=== PATIENT | male | born 1965 | race Two or more races ===

== ENCOUNTER 2024-10-12 14:08 | Emergency (ER) | payer OTHER ==
[~2024-10-12] VITALS: Ht 177.8 cm; Wt 74.9 kg
--- NOTE | 2024-10-12 15:32 | ED.PDOC ---
History of Present Illness HPI Comments 59-year-old male presents with a chief complaint of left sided pelvic pain that radiates into his testes x 1 day. Patient states that his pain is localized to his left inguinal region, radiates into his left testicle, describes as sharp, and is exertional. Patient mentions that the pain is made worse with attempting to sit down and standing up. Patient denies any penile discharge or urinary symptoms. Patient also denies any trauma. Chief Complaint: Pelvic Pain Time Seen by MD: 15:18 Reviewed Notes: Nurses Notes, Medications, Allergies Allergies: Coded Allergies: NO KNOWN ALLERGIES (Unverified , 10/12/24) Information Source: Patient Mode of Arrival: Ambulatory Severity: Moderate Timing: Days Duration: Since onset Prehospital treatment: None Past Medical History PAST MEDICAL HISTORY: Denies Surgical History: Denies all surgeries Family History Family History: Reviewed,noncontributory to illness Social History Smoker: Non-Smoker Alcohol: Denies ETOH Use Drugs: Denies Drug Use Lives In: Home Constitutional: denies: chills, diaphoresis, fatigue, fever, malaise, sweats, weakness, others EENTM: denies: blurred vision, double vision, ear bleeding, ear discharge, ear drainage, ear pain, ear ringing, eye pain, eye redness, hearing loss, mouth pa in, mouth swelling, nasal discharge, nose bleeding, nose congestion, nose pain, photophobia, tearing, throat pain, throat swelling, voice changes, others Respiratory: denies: cough, hemoptysis, orthopnea, SOB at rest, shortness of breath, SOB with excertion, stridor, wheezing, others Cardiovascular: denies: chest pain, dizzy spells, diaphoresis, Dyspnea on exertion, edema, irregular heart beat, left arm pain, lightheadedness, palpitations, PND, syncope, others Gastrointestinal: denies: abdomen distended, abdominal pain, blood streaked bowels, constipated, diarrhea, dysphagia, difficulty swallowing, hematemesis, melena, nausea, poor appetite, poor fluid intake, rectal bleeding, rectal pain, vomiting, others Genitourinary: reports: pain (Left-sided inguinal pain radiating into the testicles), testicle pain; denies: burning, dysuria, flank pain, frequency, hematuria, incontinence, penile discharge, penile sore, testicle swelling, urgency, others Neurological: denies: dizziness, fainting, headache, left sided numbness, left sided weakness, numbness, paresthesia, pre-existing deficit, right sided numbness, right sided weakness, seizure, speech problems, tingling, tremors, weakness, others Musculoskeletal: denies: back pain, gout, joint pain, joint swelling, muscle pain, muscle stiffness, neck pain, others Integumetry: denies: bruises, change in color, change in hair/nails, dryness, laceration, lesions, lumps, rash, wounds, others Allergic/Immunocompromised: denies: Difficulty Healing, Frequent Infections, Hives, Itching, others Hematologic/Lymphatic: denies: anemia, blood clots, easy bleeding, easy bruising, swollen glands, others Endocrine: denies: excessive hunger, excessive sweating, excessive thirst, excessive urination, flushing, intolerance to cold, intolerance to heat, unexplained weight gain, unexplained weight loss, others Psychiatric: denies: anxiety, bipolar disorder, depression, hopeless, panic disorder, schizophrenia, sleepless, suicidal, others All Other Systems: Reviewed and Negative Physical Exam General Appearance: Moderate Distress (To left-sided inguinal and testicular pain), Normal HEENT: Normal ENT Inspection, Pharynx Normal, TMs Normal Neck: Full Range of Motion, Non-Tender, Normal, Normal Inspection Respiratory: Chest Non-Tender, Lungs Clear, No Accessory Muscle Use, No Respiratory Distress, Normal Breath Sounds Cardiovascular: No Edema, No JVD, No Murmur, No Gallop, Normal Peripheral Pulses, Regular Rate/Rhythm Breast Exam: Deferred Gastrointestinal: No Organomegaly, Non Tender, No Pulsatile Mass, Normal Bowel Sounds, Soft Genitalia: Other (Left-sided inguinal pain extending into a mildly swollen left testicle.) Pelvic: Deferred Rectal: Deferred Extremities: No calf tenderness, Normal capillary refill, Normal inspection, Normal range of motion, Non-tender, No pedal edema Musculoskeletal : Apperance: Normal Neurologic: Alert, No Motor Deficits, Normal Affect, Normal Mood, No Sensory Deficits Cerebellar Function: Normal Reflexes: Normal Skin: Dry, Normal Color, Warm Lymphatic: No Adenopathy Was a procedure done? Was a procedure done?: No Differential Dx Considerations may include: Testicular torsion, hydrocele, epididymitis, inguinal hernia X-Ray, Labs, Meds, VS Vital Signs Date Time Temp Pulse Resp B/P (MAP) Pulse Ox O2 Delivery O2 Flow Rate FiO2 10/12/24 22:27 97.8 93 17 95/62 (73) 96 97.8 10/12/24 22:27 93 16 96 Room Air 10/12/24 20:01 98.1 97 15 100/54 (69) 95 98.1 10/12/24 17:52 99.3 115 12 99/55 (70) 94 99.3 10/12/24 15:56 108 16 98 Room Air* 0 21 10/12/24 15:56 98.2 108 16 145/86 (105) 98 98.2 10/12/24 15:01 98.9 116 16 116/77 (90) 98 98.9 Lab Test 10/12/24 19:40 10/12/24 18:21 Range/Units White Blood Count 15.3 H 4.4-10.8 10^3/uL Red Blood Count 4.71 4.5-5.90 10^6/uL Hemoglobin 13.7 13.5-17.5 g/dL Hematocrit 40.7 L 41.0-53.0 % Mean Corpuscular Volume 86.4 80.0-100.0 fL Mean Corpuscular Hemoglobin 29.1 28.0-32.0 pg Mean Corpuscular Hemoglobin Concent 33.7 32.0-36.0 g/dL Red Cell Distribution Width 13.9 11.8-14.3 % Platelet Count 185 140-450 10^3/uL Mean Platelet Volume 8.3 6.9-10.8 fL Neutrophils (%) (Auto) 87.1 H 37.0-80.0 % Lymphocytes (%) (Auto) 4.0 L 10.0-50.0 % Monocytes (%) (Auto) 8.2 0.0-12.0 % Eosinophils (%) (Auto) 0.2 0.0-7.0 % Basophils (%) (Auto) 0.5 0.0-2.0 % Neutrophils # (Auto) 13.3 H 1.6-8.6 10 ^3/uL Lymphocytes # (Auto) 0.6 0.4-5.4 10 ^3/uL Monocytes # (Auto) 1.2 0-1.3 10 ^3/uL Eosinophils # (Auto) 0 0-0.8 10 ^3/uL Basophils # (Auto) 0.1 0-0.2 10 ^3/uL Nucleated Red Blood Cells 0.0 % Sodium Level 137 136-145 mmol/L Potassium Level 3.8 3.5-5.1 mmol/L Chloride Level 104 98-107 mmol/L Carbon Dioxide Level 23 20-31 mmol/L Anion Gap 10 5-15 Blood Urea Nitrogen 16 9-23 mg/dL Creatinine 0.99 0.700-1.30 mg/dL Glomerular Filtration Rate Calc 87 >90 mL/min BUN/Creatinine Ratio 16.2 10.0-20.0 Serum Glucose 113 H 74-106 mg/dL Calcium Level 9.6 8.7-10.4 mg/dL Total Bilirubin 1.4 H 0.2-1.0 mg/dL Aspartate Amino Transferase (AST) 12 L 13-40 U/L Alanine Aminotransferase (ALT) < 9 7-40 U/L Alkaline Phosphatase 75 46-116 U/L Total Protein 6.7 5.7-8.2 g/dL Albumin 4.3 3.2-4.8 g/dL Urine Color Light-orange Yellow Urine Clarity Clear Clear Urine pH 6.5 5.0-9.0 Urine Specific [place] > 1.050 H 1.001-1.035 Urine Protein 1+ H Negative Urine Ketones 2+ H Negative Urine Blood 2+ H Negative /uL Urine Nitrite Negative Negative Urine Bilirubin Negative Negative Urine Urobilinogen 3 H Negative mg/dL Urine Leukocyte Esterase Trace Negative /uL Urine RBC 45 0 - 3 /hpf Urine Microscopic WBC 66 H 0-3 /HPF Urine Squamous Epithelial Cells None seen <5 /hpf Urine Bacteria None seen None Seen /hpf Urine Mucus Few None Seen Urine Glucose Normal Normal mg/dL Current Medications Medications (Trade) Dose Ordered Sig/[place] Route Start Time Stop Time Status Last Admin Ketorolac Tromethamine (Toradol Injection) 30 mg ONCE ONCE IM 10/12/24 15:45 10/12/24 15:46 DC 10/12/24 18:20 Acetaminophen/ Hydrocodone Bitart ([place] 10/325MG Tab) 1 tab ONCE ONCE PO 10/12/24 15:45 10/12/24 15:46 DC 10/12/24 16:07 X-Ray, Labs, Meds, VS Comment All studies performed the ED were evaluated by me personally. Laboratories revealed a mild leukocytosis which is as expected as the patient has also suffering from a urinary tract infection. Ultrasound of the testicles revealed an enlarged hypervascular and heterogeneous left epididymis suggestive of epididymitis. Follow up to resolution to exclude any type of neoplasm was advise. Left varicocele was noted as well. A hyperechoic structure in the left groin which may represent the left varicocele. Recommended CT pelvis with contrast to evaluate. We attempted to receive results from that is CT jerald luation, but after 5 hours we were unable to receive results and therefore, patient will be discharged with the advised him to return to the ED tomorrow for discussions related to that CT study. Time of 1ST Reevaluation: 00:30 Reevaluation 1ST: Improved Consultation: PCP Patient Education/Counseling: Diagnosis, Treatment, Need For Follow Up Family Education/Counseling: Diagnosis, Treatment, No Family Present SEPSIS Sepsis Screen Date sepsis recognized/suspect: Oct 12, 2024 Time Sepsis recognized/suspect: 1503 Recent Procedure: No On Antibiotic Therapy: No Respiratory Rate >20: No Heart Rate >90: No Temp<36 C (96.8 F) or >38.3 C: No SBP <90 or MAP <65 mmHG: No New Acute Mental Status Change: No Is the patient on CPAP, BIPAP,: No Physician Orders Testicular Ultrasound (10/12/24 15:31) Ct Ab Pel With Iv Con Only (10/12/24 17:26) Heplock Iv (10/12/24 ) Vital Signs Date Time Temp Pulse Resp B/P (MAP) Pulse Ox O2 Delivery O2 Flow Rate FiO2 10/12/24 22:27 97.8 93 17 95/62 (73) 96 97.8 10/12/24 22:27 93 16 96 Room Air 10/12/24 20:01 98.1 97 15 100/54 (69) 95 98.1 10/12/24 17:52 99.3 115 12 99/55 (70) 94 99.3 10/12/24 15:56 108 16 98 Room Air* 0 21 10/12/24 15:56 98.2 108 16 145/86 (105) 98 98.2 10/12/24 15:01 98.9 116 16 116/77 (90) 98 98.9 Laboratory Tests Test 10/12/24 19:40 White Blood Count 15.3 10^3/uL (4.4-10.8) H Medications Medications Dose Ordered Sig/[place] Route Start Time Stop Time Status Last Admin Dose Admin Acetaminophen/ Hydrocodone Bitart 1 tab ONCE ONCE PO 10/12/24 15:45 10/12/24 15:46 DC 10/12/24 16:07 Ketorolac Tromethamine 30 mg ONCE ONCE IM 10/12/24 15:45 10/12/24 15:46 DC 10/12/24 18:20 Departure 1 Departure Time of Disposition: 00:30 Impression: Primary Impression: UTI (urinary tract infection) Additional Impressions: Hydrocele of testis Epididymitis Varicocele Disposition: HOME / SELF CARE / HOMELESS Condition: Stable Additional Instructions: Advised patient utilize antibiotics as directed until completion. Patient has been advised to return to ED tomorrow for discussions related to his CT evaluation of his inguinal and testicular concerns. Pain medication as needed. e-Prescriptions Hydrocodone-Acetaminophen (Hydrocodone Bitartrate/AC 10-325 mg) 1 Tab Tab 1 TAB PO Q8HP PRN, #15 TAB Prov: GANESH KAPLAN PAC 10/13/24 Ibuprofen Micronized (Ibuprofen) 800 Mg Tab 800 MG PO Q8HP PRN, #20 TAB Prov: GANESH KAPLAN PAC 10/13/24 Levofloxacin Hemihydrate (LEVAQUIN 500 MG) 500 Mg Tab 1 TAB PO DAILY, #7 TAB Prov: GANESH KAPLAN PAC 10/13/24 Discharged With: Self, Friend Critical Care Note Critical Care Time?: No Stability Stability form required: No Heart Score Heart Score: Heart Score Response (Comments) Value History N/A 0 EKG N/A 0 Age N/A 0 Risk Factors N/A 0 Troponin N/A 0 Total 0 I personally scribed for GANESH KAPLAN PAC ([email or web address]) on 10/12/24 at 15:32. Electronically submitted by Domenico Ortiz ([email or web address]). GANESH KAPLAN PAC Oct 12, 2024 15:32
[2024-10-12 15:56] VITALS: PULSE 108; RESP 16; O2SAT 98
[2024-10-12] MEDS: HYDROcodone-ACET 10/325MG TAB PO ONE (16:07)
--- NOTE | 2024-10-12 17:16 | DVH ---
Indication: Left testicle pain Technique: Real-time ultrasound images through the scrotum. Comparison: None Findings: Right testicle measures 4.5 x 2.4 x 3.3 cm. It has normal echogenicity and echotexture, with no foca l solid or cystic mass. There is normal flow on color Doppler, with normal waveforms. The right epidi dymal head measures 1.2 cm, and has no focal masses. Left testicle measures 4 x 2 x 3.4 cm. It has normal echogenicity and echotexture, with no focal darleen id or cystic mass. There is normal flow on color Doppler, with normal waveforms. The left epididymal head measures 1.2 cm, and has enlarged appearance with increased vascularity. Heterogeneous appeara nce of the left epididymis. There is varicocele measuring 4 mm in diameter.. Technologist note states hypoechoic structure in the left groin. Small left hydrocele. Impression: Enlarged, hypervascular and heterogeneous left epididymis suggesting epididymitis. Follow-up to resol ution to exclude any type of neoplasm. Left varicocele. The technologist note states a hyperechoic structure in the left groin which may represent the left v aricocele. Recommend CT pelvis with contrast to evaluate. Small left hydrocele.
[2024-10-12] MEDS: KETOROLAC TROMETH 60MG/2ML VIAL IM ONE (18:20)
[2024-10-12 19:53] LABS: Hematocrit 40.7 % (41.0-53.0); Hemoglobin 13.7 g/dL (13.5-17.5); Mean Corpuscular Hemoglobin 29.1 pg (28.0-32.0); Mean Corpuscular Volume 86.4 fL (80.0-100.0); Nucleated Red Blood Cells % 0.0 %
[2024-10-12 20:07] LABS: Albumin 4.3 g/dL (3.2-4.8); Alkaline Phosphatase 75 U/L (46-116); Anion Gap 10 (5-15); BUN/Creatinine Ratio 16.2 (10.0-20.0); Blood Urea Nitrogen 16 mg/dL (9-23); Calcium 9.6 mg/dL (8.7-10.4); Carbon Dioxide 23 mmol/L (20-31); Chloride 104 mmol/L (98-107); Potassium 3.8 mmol/L (3.5-5.1); Sodium 137 mmol/L (136-145); Total Protein 6.7 g/dL (5.7-8.2)
[2024-10-12 20:09] LABS: Alanine Aminotransferase < 9 U/L (7-40); Bilirubin, Total 1.4 mg/dL (0.2-1.0); Glucose 113 mg/dL (74-106)
[2024-10-12] MEDS: IOHEXOL 300 MG/ML 100ML BOTTLE IJ ONE (21:15)
[2024-10-12 22:47] LABS: Urine Protein, UAD 1+ (Negative)
[2024-10-13 00:27] VITALS: BP 95/64; PULSE 83; RESP 18; TEMP 97.9; O2SAT 100
[2024-10-13] MEDS ORDERED: HYDR-4798 PO (00:32)
[2024-10-13] MEDS ORDERED: LEVO500T91 PO (00:32)
[2024-10-13] MEDS ORDERED: IBUP-1455 PO (00:32)
[2024-10-13] MEDS ORDERED: levoFLOXacin 250 MG TAB PO ONE (00:45)
[2024-10-13] MEDS ORDERED: HYDROcodone-ACET 10/325MG TAB PO ONE (00:45)
--- NOTE | 2024-10-13 04:50 | DVH ---
Exam: CT CT AB PEL WITH IV CON ONLY History: Pelvic and scrotal evaluation COMPARISON: None Technique: Multidetector spiral CT of the abdomen and pelvis was performed from lung bases to pubic s ymphysis. Intravenous contrast was administered during this examination. Portal venous imaging was o btained. Axial, coronal and sagittal multiplanar reformats were performed by the technologist on a [employer] workstation. Radiation Dose : 1. Abdomen/Pelvis: CTDIvol 8.49 mGy, DLP 544.65 mGy*cm. CONTRAST: Type of contrast: Omniscan 300 Contrast injected: 100 ml Findings: Lung Bases: No acute or significant lung base finding. Normal heart size. No pleural or pericardial effusion. Liver: The liver is normal in size. No focal lesions. Normal hepatic vascular enhancement. Gallbladder and Biliary Tree: Unremarkable Spleen: Unremarkable Pancreas: The pancreas is normal in appearance without focal lesions or abnormal enhancement. Adrenal Glands: Unremarkable Kidneys: No hydronephrosis. Bladder: Unremarkable Bowel: The stomach is grossly normal in appearance. Small bowel and colon are normal in caliber and d istribution. The appendix is not visualized; however, no secondary findings of acute appendicitis kem ntified. Ascites: Absent Lymphadenopathy: No mesenteric, retroperitoneal or periportal lymphadenopathy. Abdominal Wall and Mesentery: Unremarkable. Vasculature: The visualized abdominal aorta is normal in size and caliber. Atherosclerotic vascular c alcifications. Abdominal and pelvic vessels demonstrate normal enhancement. Pelvic Organs: Unremarkable Musculoskeletal: No aggressive focal bony lesions, acute fractures or dislocation. IMPRESSION: 1. No acute abdominal or pelvic finding. Radiation optimization: All CT scans at this facility use at least one of these dose optimization skylar hniques: automated exposure control mA and/or kV adjustment per patient size (includes targeted exam s where dose is matched to clinical indication) or iterative reconstruction.
== END 2024-10-13 00:45 | disposition home or self-care (01) ==
LOC: ER 14:08
DX: N39.0 Urinary tract infection, site not specified (principal); N43.3 Hydrocele, unspecified; N45.1 Epididymitis; I86.1 Scrotal varices
CPT/HCPCS: 36415; 74177; 76870; 80053; 81001; 85025; 96372; 99285; J1885; Q9967

== ENCOUNTER 2024-10-13 14:46 | Emergency (ER) | payer OTHER ==
[~2024-10-13] VITALS: Ht 177.8 cm; Wt 75.6 kg
[~2024-10-13 14:46] MED LIST: HYDR-4798 PO; IBUP-1455 PO; LEVO500T91 PO
--- NOTE | 2024-10-13 15:31 | ED.PDOC ---
History of Present Illness HPI Comments This is a 59 year old male who returns to the ED today for discussions related to yesterday's pelvic CT results. Patient reports that he is returning from his visit last night in the ED due to needing his imaging results. Patient relays that he was told last night the CT results were down and he could not be informed if it was normal or not. Patient states he has not taken the antibiotics yet he was prescribed. Patient denies any further questions or concerns at this time. Patient was mildly tachycardic at arrival. Chief Complaint: Urinary Time Seen by MD: 15:24 Reviewed Notes: Nurses Notes, Medications, Allergies Allergies: Coded Allergies: NO KNOWN ALLERGIES (Unverified , 10/12/24) Home Meds Active Scripts Hydrocodone-Acetaminophen (Hydrocodone Bitartrate/AC 10-325 mg) 1 Tab Tab, 1 TAB PO Q8HP PRN, #15 TAB Prov:GANESH KAPLAN PAC 10/13/24 Ibuprofen Micronized (Ibuprofen) 800 Mg Tab, 800 MG PO Q8HP PRN, #20 TAB Prov:GANESH KAPLAN [facility] 10/13/24 Levofloxacin Hemihydrate (LEVAQUIN 500 MG) 500 Mg Tab, 1 TAB PO DAILY, #7 TAB Prov:GANESH KAPLAN [facility] 10/13/24 Information Source: Patient Mode of Arrival: Ambulatory Severity: Mild Timing: Days Duration: Since onset Prehospital treatment: None Past Medical History PAST MEDICAL HISTORY: Denies Surgical History: Denies all surgeries Family History Family History: Reviewed,noncontributory to illness Social History Smoker: Non-Smoker Alcohol: Denies ETOH Use Drugs: Denies Drug Use Lives In: Home Constitutional: denies: chills, diaphoresis, fatigue, fever, malaise, sweats, weakness, others EENTM: denies: blurred vision, double vision, ear bleeding, ear discharge, ear drainage, ear pain, ear ringing, eye pain, eye redness, hearing loss, mouth pain, mouth swelling, nasal discharge, nose bleeding, nose congestion, nose pain, photophobia, tearing, throat pain, throat swelling, voice changes, others Respiratory: denies: cough, hemoptysis, orthopnea, SOB at rest, shortness of breath, SOB with excertion, stridor, wheezing, others Cardiovascular: denies: chest pain, dizzy spells, diaphoresis, Dyspnea on exertion, edema, irregular heart beat, left arm pain, lightheadedness, palpitations, PND, syncope, others Gastrointestinal: denies: abdomen distended, abdominal pain, blood streaked bowels, constipated, diarrhea, dysphagia, difficulty swallowing, hematemesis, melena, nausea, poor appetite, poor fluid intake, rectal bleeding, rectal pain, vomiting, others Genitourinary: reports: others (Left-sided inguinal regional pain extending into the left sided testicle); denies: burning, dysuria, flank pain, frequency, hematuria, incontinence, penile discharge, penile sore, pain, testicle pain, testicle swelling, urgency Neurological: denies: dizziness, fainting, headache, left sided numbness, left sided weakness, numbness, paresthesia, pre-existing deficit, right sided numbness, right sided weakness, seizure, speech problems, tingling, tremors, weakness, others Musculoskeletal: denies: back pain, gout, joint pain, joint swelling, muscle pain, muscle stiffness, neck pain, others Integumetry: denies: bruises, change in color, change in hair/nails, dryness, laceration, lesions, lumps, rash, wounds, others Allergic/Immunocompromised: denies: Difficulty Healing, Frequent Infections, Hives, Itching, others Hematologic/Lymphatic: denies: anemia, blood clots, easy bleeding, easy bruising, swollen glands, others Endocrine: denies: excessive hunger, excessive sweating, excessive thirst, excessive urination, flushing, intolerance to cold, intolerance to heat, unexplained weight gain, unexplained weight loss, others Psychiatric: denies: anxiety, bipolar disorder, depression, hopeless, panic disorder, schizophrenia, sleepless, suicidal, others All Other Systems: Reviewed and Negative Physical Exam General Appearance: Moderate Distress ([id number] distress due to inguinal and testicular pain, but improved from yesterday.), Normal HEENT: Normal ENT Inspection, Pharynx Normal, TMs Normal Neck: Full Range of Motion, Non-Tender, Normal, Normal Inspection Respiratory: Chest Non-Tender, Lungs Clear, No Accessory Muscle Use, No Respiratory Distress, Normal Breath Sounds Cardiovascular: No Edema, No JVD, No Murmur, No Gallop, Normal Peripheral Pulses, Regular Rate/Rhythm Breast Exam: Deferred Gastrointestinal: No Organomegaly, Non Tender, No Pulsatile Mass, Normal Bowel Sounds, Soft Genitalia: Other (Patient is a user complain of the left-sided inguinal pain extending into the left-sided testicle. No progression from yesterday's evaluation.) Pelvic: Deferred Rectal: Deferred Extremities: No calf tenderness, Normal capillary refill, Normal inspection, Normal range of motion, Non-tender, No pedal edema Musculoskeletal : Apperance: Normal Neurologic: Alert, No Motor Deficits, Normal Affect, Normal Mood, No Sensory Deficits Cerebellar Function: Normal Reflexes: Normal Skin: Dry, Normal Color, Warm Lymphatic: No Adenopathy Was a procedure done? Was a procedure done?: No Differential Dx Considerations may include: Epididymitis, varicocele, neoplasm, inguinal hernia X-Ray, Labs, Meds, VS Vital Signs Date Time Temp Pulse Resp B/P (MAP) Pulse Ox O2 Delivery O2 Flow Rate FiO2 10/13/24 15:54 93 18 95 Room Air 10/13/24 15:54 97.2 93 16 103/76 (85) 95 97.2 10/13/24 14:54 98.3 106 12 104/76 (85) 97 98.3 Current Medications Medications (Trade) Dose Ordered Sig/[place] Route Start Time Stop Time Status Last Admin Ceftriaxone Sodium (Rocephin) 500 mg ONCE ONCE IM 10/13/24 15:30 10/13/24 15:31 DC 10/13/24 15:50 X-Ray, Labs, Meds, VS Comment Advised patient that is CT follow up was unremarkable for any additional concerns. Patient is suffering from an epididymitis event. Patient received his Rocephin dosing today and will complete his Levaquin at home. Pain medication as needed. Time of 1ST Reevaluation: 16:03 Reevaluation 1ST: Improved Consultation: PCP Patient Education/Counseling: Diagnosis, Treatment Family Education/Counseling: Diagnosis, Treatment, No Family Present SEPSIS Sepsis Screen Date sepsis recognized/suspect: Oct 13, 2024 Time Sepsis recognized/suspect: 1453 Recent Procedure: No On Antibiotic Therapy: No Respiratory Rate >20: No Heart Rate >90: Yes Temp<36 C (96.8 F) or >38.3 C: No SBP <90 or MAP <65 mmHG: No New Acute Mental Status Change: No Is the patient on CPAP, BIPAP,: No Vital Signs Date Time Temp Pulse Resp B/P (MAP) Pulse Ox O2 Delivery O2 Flow Rate FiO2 10/13/24 15:54 93 18 95 Room Air 10/13/24 15:54 97.2 93 16 103/76 (85) 95 97.2 10/13/24 14:54 98.3 106 12 104/76 (85) 97 98.3 Medications Medications Dose Ordered Sig/[place] Route Start Time Stop Time Status Last Admin Dose Admin Ceftriaxone Sodium 500 mg ONCE ONCE IM 10/13/24 15:30 10/13/24 15:31 DC 10/13/24 15:50 Departure 1 Departure Time of Disposition: 16:03 Impression: Primary Impression: Epididymitis Additional Impression: Varicocele Disposition: HOME / SELF CARE / HOMELESS Condition: Stable Additional Instructions: Advised patient utilize antibiotics as directed until completion as well as pain medication as needed. Patient received antibiotic and pain medication at yesterday's visit. Discharged With: Self, Friend Critical Care Note Critical Care Time?: No Stability Stability form required: No Heart Score Heart Score: Heart Score Response (Comments) Value History N/A 0 EKG N/A 0 Age N/A 0 Risk Factors N/A 0 Troponin N/A 0 Total 0 I personally scribed for GANESH KAPLAN PAC ([email or web address]) on 10/13/24 at 15:31. Electronically submitted by Nael Tay ([email or web address]). GANESH KAPLAN PAC Oct 13, 2024 15:31
[2024-10-13] MEDS ORDERED: LIDOCAINE 1% HCL (LOCAL ANESTH.) INJ 20ML MDV ONE (15:48)
[2024-10-13] MEDS: cefTRIAXone SOD 500 MG VL IM ONE (15:50)
[2024-10-13 15:54] VITALS: BP 103/76; PULSE 93; RESP 18; TEMP 97.2; O2SAT 95
== END 2024-10-13 16:01 | disposition home or self-care (01) ==
LOC: ER 14:46
DX: N45.1 Epididymitis (principal); I86.1 Scrotal varices
CPT/HCPCS: 96372; 99283; J0696; J2003